=== PATIENT | male | born 1975 ===

== ENCOUNTER 2018-08-05 18:26 | Emergency (ER) | payer OTHER ==
[2018-08-05 18:38] VITALS: BP 128/80; PULSE 97; RESP 16; TEMP 98.9; O2SAT 99
--- NOTE | 2018-08-05 19:04 | ED PDOC ---
HPI: Back Time Seen by Provider: 08/05/18 18:38 Chief Complaint (Nursing): Back Pain Chief Complaint (Provider): Back Pain History Per: Patient History/Exam Limitations: no limitations Onset/Duration Of Symptoms: Days (x2) Exacerbating Factor(s): Movement Additional Complaint(s): 43 years old male with no PMHx presents to ER for evaluation of atraumatic mid left back pain that he woke up with 2 days ago. Patient states pain worsens with movement and reports taking Advil and Aspirin of which last dose was yesterday with no relief. He denies any associated symptoms, fever, chills, urinary symptoms, hematuria, incontinence, numbness, weakness, chest pain, saddle anesthesia, bowel dysfunction, or shortness of breath. 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 PMD: None provided Past Medical History Reviewed: Historical Data, Nursing Documentation, Vital Signs Vital Signs: Last Vital Signs Temp 98.9 F 08/05/18 18:36 Pulse 97 H 08/05/18 18:36 Resp 16 08/05/18 18:36 BP 128/80 08/05/18 18:36 Pulse Ox 99 08/05/18 18:36 - Medical History PMH: No Chronic Diseases - Surgical History Other surgeries: Tendon repair of both hands - Family History Family History: States: Unknown Family Hx - Social History Current smoker - smoking cessation education provided: Yes (A pack/day) Alcohol: None Drugs: Denies - Home Medications Home Medications: Ambulatory Orders Medication Instructions Recorded Acetaminophen/Hydrocodone Bi 1 tab PO .Q4H PRN #10 tab 07/23/13 [Hydrocodone/Acet 325 mg-5 mg] Ibuprofen [Motrin] 1 tab PO TID PRN #30 tab 07/23/13 Ciprofloxacin [Cipro] 500 mg PO BID #14 tab 08/05/18 Cyclobenzaprine [Cyclobenzaprine 10 mg PO Q8 PRN #12 tab 08/05/18 HCl] Naproxen 500 mg PO BID #14 tab 08/05/18 - Allergies Allergies/Adverse Reactions: Allergies Allergy/AdvReac Type Severity Reaction Status Date / Time No Known Allergies Allergy Unverified 07/23/13 17:29 Review of Systems ROS Statement: Except As Marked, All Systems Reviewed And Found Negative Constitutional: Negative for: Fever, Chills Cardiovascular: Negative for: Chest Pain Respiratory: Negative for: Shortness of Breath Genitourinary Male: Negative for: Incontinence, Hematuria Musculoskeletal: Positive for: Back Pain (mid left) Neurological: Negative for: Weakness, Numbness Physical Exam - Reviewed Nursing Documentation Reviewed: Yes Vital Signs Reviewed: Yes - Physical Exam Comments: GENERAL APPEARANCE: Patient is awake, alert, oriented x 3, in no acute distress. Resting comfortably. SKIN: Warm, dry; (-) cyanosis. EYES: (-) conjunctival injection ENMT: Mucous membranes moist. Airway patent, (-) stridor. NECK: Supple, FROM (-) tenderness, (-) stiffness, (-) lymphadenopathy. CHEST AND RESPIRATORY: (-) rales, (-) rhonchi, (-) wheezes; breath sounds equal bilaterally. Respirations even and nonlabored. Speaking in full sentences. HEART AND CARDIOVASCULAR: (-) irregularity ABDOMEN AND GI: Soft; (-) tenderness (-) CVA tenderness (-) distention (-) guarding; (-) palpable mass. BACK: (+) left lower parathoracic tenderness, (+) questionable L CVA tenderness, (-) direct bony tenderness, (-) deformity. EXTREMITIES: (-) deformity. Distal pulses good bilaterally. NEURO AND PSYCH: Mental status as above. Intact sensation bilaterally; normal strength in extension of the knees, plantar and dorsiflexion of the toes. Gait: steady. Speech: clear. (-) facial asymmetry - Laboratory Results Urine dip results: Positive for: Blood (trace), Ketones (trace), Bilirubin (small), Protein (100). Negative for: Leukocyte Esterase, Nitrate, Glucose - ECG O2 Sat by Pulse Oximetry: 99 (RA) Pulse Ox Interpretation: Normal Medical Decision Making Medical Decision Making: Time: 1854 Initial impression: acute back pain, probable muscle spasm Initial plan: --Urine dipstick --Flexeril 10 mg PO (not driving home) --Toradol 60 mg IM --Re-evaluation 2014 On re-evaluation, patient reports no relief in symptoms. Valium 5mg PO ordered. Pending urine dipstick. 2030 Udip reviewed, U/A and U/C ordered. (-) blood (-) nitrate 2105 U/A reviewed. Trace leukocytes and WBC. Cipro 500mg PO ordered. Patient denies any urinary complaints. On re-evaluation, patient reports improvement of symptoms. On exam, patient remains AAOx3, in no acute distress. Lungs clear to auscultation, cardiac RRR, abdomen soft, non-tender, repeat neuro exam shows no focal findings. Vitals stable. Lab/Diagnostic results d/w the patient in great detail. Diagnosis of acute back pain, UTI d/w the patient. Based on history, exam and diagnostic results, plan will be for outpatient follow up with PMD/ortho/urology. Patient instructed to follow-up with pmd / referral provided / the clinic in 1- 2 days without fail. Advised to take medication as prescribed. Return to the emergency room at any time for any new or worsening symptoms. Patient states he fully agrees with and understands discharge instructions. States that he agrees with the plan and disposition. Verbalized and repeated discharge instructions and plan. I have given the patient opportunity to ask any additional questions. Scribe Attestation: Documented by Dixie Winchester acting as a scribe for Leia Plascencia PA-C. Provider Scribe Attestation: All medical record entries made by the Scribe were at my direction and personally dictated by me. I have reviewed the chart and agree that the record accurately reflects my personal performance of the history, physical exam, medical decision making, and the department course for this patient. I have also personally directed, reviewed, and agree with the discharge instructions and disposition. Disposition - Clinical Impression Clinical Impression: Back strain, UTI (urinary tract infection), Low back pain - Patient ED Disposition Is Patient to be Admitted: No Counseled Patient/Family Regarding: Studies Performed, Diagnosis, Need For Followup, Rx Given - Disposition Referrals: [facility] [Outside] Rosario Holm MD [Medical Doctor] - Disposition: Routine/Home Disposition Time: 21:05 Condition: STABLE Additional Instructions: The emergency medical care you received today was directed at your acute symptoms. If you were prescribed any medication, please fill it and take as directed. It may take several days for your symptoms to resolve. Return to the Emergency Department if your symptoms worsen, do not improve, or if you have any other problems. Please contact your doctor in 2 days for re-evaluation and follow up / or call one of the physicians/clinics you have been referred to that are listed on the Patient Visit Information form that is included in your discharge packet. Bring any paperwork you were given at discharge with you along with any medications you are taking to your follow up visit. Our treatment cannot replace ongoing medical care by a primary care provider (PCP) outside of the emergency department. Prescriptions: Ciprofloxacin [Cipro] 500 mg PO BID #14 tab Cyclobenzaprine [Cyclobenzaprine HCl] 10 mg PO Q8 PRN #12 tab PRN Reason: Muscle Spasm Naproxen 500 mg PO BID #14 tab Instructions: Urinary Tract Infections in Adults, Low Back Pain in Adults, Muscle Strain (DC), Muscle Spasms (DC) Forms: Scopely (Syriac) Print Language: CUBAN - POA Present On Arrival: None Results - Lab Results Lab Results: 08/05/18 20:38 Urine Color Yellow Urine Clarity Slighty-cloudy Urine pH 5.0 Ur Specific Pe Ell 1.031 H Urine Protein 100 Urine Glucose (UA) Neg Urine Ketones Negative Urine Blood Negative Urine Nitrate Negative Urine Bilirubin Negative Urine Urobilinogen 1.1 Ur Leukocyte Esterase Trace Urine RBC (Auto) 3 Urine Microscopic WBC 7 H Urine Bacteria Rare
[2018-08-05 20:47] LABS: URINE BACTERIA RARE (<OCC); URINE BILIRUBIN NEGATIVE (NEGATIVE); URINE BLOOD NEGATIVE (NEGATIVE); URINE CLARITY SLIGHTY-CLOUDY (Clear); URINE COLOR YELLOW (YELLOW); URINE GLUCOSE (UA) NEG (NEGATIVE); URINE LEUKOCYTE ESTERASE TRACE Leu/uL (Negative); URINE PROTEIN 100 mg/dL (NEGATIVE)
[2018-08-05 20:50] LABS: URINE UROBILINOGEN 1.1 mg/dL (0.2-1.0)
== END 2018-08-05 21:20 | disposition home or self-care (01) ==
LOC: H.ER 18:26
DX: S39.012A Strain of muscle, fascia and tendon of lower back, initial encounter (principal); N39.0 Urinary tract infection, site not specified; F17.210 Nicotine dependence, cigarettes, uncomplicated
CPT/HCPCS: 81003; 87086; 96372; 99282; J1885